=== PATIENT | male | born 1950 | race Caucasian/White ===

== ENCOUNTER 2017-10-15 06:27 | Day surgery (SDC) | payer OTHER ==
[2017-10-14 15:10] VITALS: BP 157/90
[~2017-10-15] VITALS: Ht 180.3 cm; Wt 99.8 kg
[2017-10-15] VITALS (19 sets, daily range): BP systolic 111–129; BP diastolic 65–85
[~2017-10-15 06:27] MED LIST: AMLO5TAB2 PO; CEFAZOLIN SODIUM 1 GM VIAL IVP SCH; CYCL5TAB PO; OMEP20CA10 PO; PRAV40TA3 PO; PREG75 PO; TADA10TA PO; TRAM50TA4 PO
[2017-10-15] MEDS ORDERED: SUCCINYLCHOLINE 200MG/10ML SYR ONE ×2 (06:46→08:59)
[2017-10-15] MEDS ORDERED: MIDAZOLAM HCL 1 MG/ML 2ML VIAL ONE (06:46)
[2017-10-15] MEDS ORDERED: LIDOCAINE PF 2% 5ML ABBOJECT ONE (06:46)
[2017-10-15] MEDS ORDERED: GLYCOPYRROLATE 0.2 MG/ML 5 ML VIAL ONE ×2 (06:46→09:00)
[2017-10-15] MEDS ORDERED: PROPOFOL 10 MG/ML 20ML VIAL IV ONE (06:46)
[2017-10-15] MEDS ORDERED: DEXAMETHASONE SOD PHOSPHATE 10MG/ML 1ML VIAL ONE ×2 (06:46→08:59)
[2017-10-15] MEDS ORDERED: FENTANYL CITRATE PF 50 MCG/1 ML 5ML AMP IV ONE (06:47)
[2017-10-15] MEDS ORDERED: SODIUM CHLORIDE 0.9% 1000ML 0 ML IV ONE (07:08)
[2017-10-15] MEDS ORDERED: FAMOTIDINE/PF 20 MG/2 ML VIAL IV ONE (08:27)
[2017-10-15] MEDS ORDERED: LIDOCAINE HCL 4% LTA SOL 4 ML VIAL ONE (08:59)
[2017-10-15] MEDS ORDERED: ROCURONIUM BROMIDE 10MG/1ML 5ML VL ONE ×2 (08:59)
[2017-10-15] MEDS ORDERED: NEOSTIGMINE METHYLSULFATE 1MG/ML IV ONE (09:00)
[2017-10-15] MEDS ORDERED: NALOXONE HCL 0.4 MG/1 ML ML ONE (09:16)
[2017-10-15] MEDS: LACTATED RINGERS 1000ML 1,000 ML IV ONE (09:20)
[2017-10-15] MEDS ORDERED: MEPERIDINE-PF 25 MG/ML SYG ONE ×2 (09:43→09:54)
[2017-10-15] MEDS ORDERED: ACETAMINOPHEN-CODEINE 300/30MG TAB ONE (10:42)
== END 2017-10-15 11:15 | disposition home or self-care (01) ==
LOC: DAH 06:27
PROVIDERS: ATTEND Orthopaedic Surgery
DX: M23.221 Derangement of posterior horn of medial meniscus due to old tear or injury, right knee (principal); M22.41 Chondromalacia patellae, right knee; I10 Essential (primary) hypertension; K21.9 Gastro-esophageal reflux disease without esophagitis
CPT/HCPCS: 29879; 29881; A4218; A4606; A4649 ×2; A4930; A6223; J0330 ×2; J0690; J1100 ×2; J2001; J2175 ×2; J2250; J2310; J2704; J2710; J3010; J3490 ×5; J7120 ×2; J7030